=== PATIENT | male | born 1960 | race Caucasian/White ===

== ENCOUNTER 2019-04-25 04:07 | Emergency (ER) | payer MEDICARE, OTHER ==
[~2019-04-25] VITALS: Ht 180.3 cm; Wt 59.1 kg
[2019-04-25] MEDS ORDERED: NS 1,000 ML IV ONE (04:45)
[2019-04-25] MEDS: HYDROMORPHONE HCL 0.5 MG/ 0.5 ML SYRINGE (J1170 PER 1) IV PRN ×2 (04:57→06:40)
[2019-04-25 05:10] LABS: BASO % 0.5 % (0.0-1.0); EOS # 0.1 10^3/uL (0.0-0.5); EOS % 0.7 % (0.0-3.0); HEMATOCRIT 36.7 % (42.0-52.0); HEMOGLOBIN 12.7 g/dl (13.5-17.5); LYMPH % 14.1 % (24.0-44.0); MEAN CORPUSCULAR HEMOGLOBIN 30.5 pg (27.0-33.0); MEAN CORPUSCULAR HGB CONC 34.6 g/dl (32.0-36.5); MONO # 0.3 10^3/uL (0.0-0.8); MONO % 4.6 % (0.0-5.0); NEUTROPHILS # 5.9 10^3/uL (1.5-8.5); NEUTROPHILS % 79.6 % (36.0-66.0); PLATELET COUNT, AUTOMATED 234 10^3/uL (150-450); RED BLOOD COUNT 4.17 10^6/uL (4.30-6.10); WHITE BLOOD COUNT 7.4 10^3/uL (4.0-10.0)
[2019-04-25] MEDS ORDERED: PROBCAP19 PO (05:19)
[2019-04-25] MEDS ORDERED: SUCR1TA PO (05:19)
[2019-04-25] MEDS ORDERED: PANT40TA3 PO (05:19)
[2019-04-25] MEDS ORDERED: CREO3600 PO (05:20)
[2019-04-25] MEDS ORDERED: CHOL10007 PO (05:21)
[2019-04-25] MEDS ORDERED: CELE100C PO (05:21)
[2019-04-25] MEDS ORDERED: AMIT25TA PO (05:22)
[2019-04-25] MEDS ORDERED: DILA2TAB6 PO (05:23)
[2019-04-25 05:42] LABS: ALBUMIN 3.8 GM/DL (3.2-5.2); ALT/SGPT 20 U/L (12-78); BILIRUBIN,DIRECT 0.1 MG/DL (0.0-0.2); BILIRUBIN,TOTAL 0.5 MG/DL (0.2-1.0); ETHYL ALCOHOL (ETHANOL) < 0.003 % (0.000-0.010); LIPASE 122 U/L (73-393)
[2019-04-25 06:13] LABS: MAGNESIUM LEVEL 1.9 MG/DL (1.8-2.4)
[2019-04-25] MEDS ORDERED: POTASSIUM CHLORIDE 10 MEQ SR TABLET PO ONE (06:15)
[2019-04-25] MEDS: GASTROGRAFIN SOLUTION 30ML PO SCH ×2 (06:30→06:56)
[2019-04-25] MEDS ORDERED: ISOVUE-370 76% 100ML VIAL (Q9967) As Ordered ONE (07:39)
--- NOTE | 2019-04-25 08:11 | REPVR ---
PROCEDURE INFORMATION: Exam: CT Abdomen And Pelvis With Contrast Exam date and time: 04/25/2019 5:59 AM Clinical history: 58 years old, male; Abdominal pain; Epigastric; Additional info: Epigastric abd pain, pancreatic biopsy yesterday TECHNIQUE: Imaging protocol: Computed tomography of the abdomen and pelvis with intravenous contrast. Radiation optimization: All CT scans at this facility use at least one of these dose optimization techniques: automated exposure control; mA and/or kV adjustment per patient size (includes targeted exams where dose is matched to clinical indication); or iterative reconstruction. Contrast material: ISOVUE 370; Contrast volume: 100 ml; Contrast route: IV; COMPARISON: No relevant prior studies available. FINDINGS: Liver: There is a faint small hypodense lesion measuring 3-4 mm at the dome of the liver best appreciated on coronal image 55 and axial image 15. Gallbladder and bile ducts: Normal. No calcified stones. No ductal dilation. Pancreas: There is a 3.8 x 4.3 x 3.1 cm heterogeneous hypodense mass in the pancreatic body with distal pancreatic ductal dilatation. The mass appeared to surround artery the splenic artery. Spleen: Normal. No splenomegaly. Adrenals: There is left adrenal gland thickening. Kidneys and ureters: There is 4.3 x 4.0 cm left renal cyst. Stomach and bowel: There is moderate colonic stool burden. Appendix: No evidence of appendicitis. Intraperitoneal space: Unremarkable. No free air. No significant fluid collection. Vasculature: There is moderate aortic mural calcifications. There is normal variant persistent right sciatic artery. Lymph nodes: Small lymph nodes seen in the lesser sac. Peripancreatic small lymph nodes are seen. Bladder: Unremarkable as visualized. Reproductive: Unremarkable as visualized. Bones/joints: Unremarkable. No acute fracture. Soft tissues: Unremarkable. IMPRESSION: 1. 3.8 x 4.3 x 3.1 cm pancreatic body hypodense mass with distal pancreatic ductal dilatation. 2. Nonspecific peripancreatic stranding seen which could be post biopsy or due to pancreatitis. 3. Shotty peripancreatic and lesser sac and peripancreatic lymph nodes. 4. Faint 3-4 mm right hepatic dome hypodensity. In view of the findings in the pancreas early metastatic disease cannot be completely excluded. Followup is recommended. 5. 4.3 x 4.0 cm left renal cyst. 6. Nonspecific left adrenal gland thickening which could be due to hyperplasia however given the findings in the pancreas, metastasis cannot be excluded. COMMENT: Consistent with the [employer]'s Incidental Findings Committee Report (J Am Juan Alberto Radiol 2010): Unless the patient's specific circumstances suggest otherwise, any liver lesion 0.5 cm or less, any cystic kidney lesion less than 1.0 cm, and/or any adrenal lesion 1.0 cm or less not otherwise characterized in this report as possessing suspicious or indeterminate imaging features is/are highly likely to be benign and do not require follow-up imaging or biopsy. Electronically signed by: Sam Jameson On 04/25/2019 08:11:04 AM
[2019-04-25 09:11] VITALS: BP 160/95
--- NOTE | 2019-04-25 10:56 | ECGEPIP ---
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
--- NOTE | 2019-04-26 07:44 | ED PDOC ---
Post-Departure Follow-Up abner lobo faxed formal report of ct abd/p for fu John Garcia MD Apr 26, 2019 07:44
== END 2019-04-25 09:13 | disposition home or self-care (01) ==
LOC: M ED 04:07
DX: K85.90 Acute pancreatitis without necrosis or infection, unspecified (principal); K86.89 Other specified diseases of pancreas; R93.5 Abnormal findings on diagnostic imaging of other abdominal regions, including retroperitoneum; R10.9 Unspecified abdominal pain; Z79.899 Other long term (current) drug therapy
CPT/HCPCS: 74177; 80047; 80076; 83690; 83735; 85025; 93005; 93041; 96361; 96374; 96376; 99284; G0480; J1170; Q9963; Q9967